=== PATIENT | male | born 1985 | race Caucasian/White ===

== ENCOUNTER 2018-09-20 08:03 | Inpatient (IN) | payer BC ==
[~2018-09-20] VITALS: Ht 180.3 cm; Wt 93.9 kg
[~2018-09-20 08:03] MED LIST: ACET-8386 PO
[2018-09-20 08:07] VITALS: BP 127/83
--- NOTE | 2018-09-20 08:11 | NUR ---
Patient ambulated to bed 9 at this time.
[2018-09-20] MEDS ORDERED: NACL 0.9% 1,000 ML IV SCH (08:12)
[2018-09-20] MEDS ORDERED: ONDANSETRON 4 MG/2 ML VIAL IVP ONE (08:15)
[2018-09-20] MEDS ORDERED: PANTOPRAZOLE 40 MG INJ VIAL IVP ONE (08:15)
--- NOTE | 2018-09-20 08:25 | NUR ---
BIB SELF WITH FAMILY C/O GENERALIZED ABD PAIN WITH BRIGHT RED BLOOD IN STOOL, NAUSEA, FATIGUE, AND BACK PAIN X 5 DAYS. LAST BM TODAY. PT A&OX4, BREATHING EVEN AND UNLABORED, NSR ON MONITOR. PAIN 8/10 AT THIS TIME.
[2018-09-20] MEDS ORDERED: METOCLOPRAMIDE 10 MG/2 ML INJ VIAL IVP ONE (08:45)
[2018-09-20] MEDS ORDERED: FAMOTIDINE 20 MG/2 ML VIAL IVP ONE (08:45)
[2018-09-20] MEDS: NACL 0.9% 1,000 ML IV ONE ×2 (08:50→09:53)
[2018-09-20 08:56] LABS: BASOPHILS % (AUTO) 0.6 % (0.0-2.0); EOSINOPHILS # (AUTO) 0.1 K/uL (0-0.4); EOSINOPHILS % (AUTO) 1.2 % (0.0-4.0); HEMATOCRIT 28.9 % (36-52); HEMOGLOBIN 9.9 g/dL (12.0-18.0); LYMPHOCYTES # (AUTO) 1.8 K/uL (2.0-11.5); LYMPHOCYTES % (AUTO) 22.4 % (20.5-51.1); MEAN CORPUSCULAR HEMOGLOBIN 29 pg (27-31); MEAN CORPUSCULAR HGB CONC 34 g/dL (33-37); MEAN CORPUSCULAR VOLUME 84.7 fL (80-94); MONOCYTES # (AUTO) 0.6 K/uL (0.8-1.0); MONOCYTES % (AUTO) 6.9 % (1.7-9.3); NEUTROPHILS # (AUTO) 5.5 K/uL (1.8-7.7); NEUTROPHILS % (AUTO) 68.9 % (42.2-75.2); PLATELET COUNT (AUTO) 185 K/uL (140-450); RED BLOOD CELL COUNT(AUTO) 3.42 MIL/uL (4.20-6.10)
--- NOTE | 2018-09-20 09:07 | NUR ---
PT TO CT WITH OCHOA GIL
[2018-09-20 09:18] LABS: APPEARANCE,URINE CLEAR (CLEAR); BILIRUBIN,URINE NEGATIVE (NEGATIVE); BLOOD, URINE NEGATIVE (NEGATIVE); COLOR,URINE YELLOW (YELLOW); LEUKOCYTE ESTERASE ,URINE NEGATIVE (NEGATIVE); NITRITE, URINE NEGATIVE (NEGATIVE); UGLUCOSE NEGATIVE (NEGATIVE)
[2018-09-20 09:18] LABS: ALBUMIN 3.4 g/dL (3.4-5.0); AMYLASE 48 U/L (25-115); ANION GAP 14.7 (8-16); ASPARTATE AMINOTRANSFERASE 29 U/L (15-37); CARBON DIOXIDE 24.4 mmol/L (21-32); CHLORIDE 105 mmol/L (98-107); CREATININE 0.7 mg/dL (0.7-1.3); GFR ARICAN-AMERICAN 167 mL/min (>90); GLUCOSE 149 mg/dL (74-106); LIPASE 103 U/L (73-393); POTASSIUM 4.1 mmol/L (3.5-5.1); SODIUM SERUM 140 mmol/L (136-145); TOTAL BILIRUBIN 0.9 mg/dL (0.0-1.0); UREA NITROGEN, BLOOD 20 mg/dL (7-18)
--- NOTE | 2018-09-20 09:18 | NUR ---
PT BACK FROM CT WITHOUT INCIDENT.
[2018-09-20 09:20] LABS: BARBITURATE, URINE NEG. ng/ml (NEG <=200); BENZODIAZEPINE, URINE NEG. ng/mL (NEG <=200); CANNABINOID, URINE NEG. ng/mL (NEG <=50); COCAINE, URINE NEG. ng/mL (NEG <=300); OPIATE, URINE NEG. ng/mL (NEG <=2000); PHENCYCLIDINE SCREEN,URINE NEG. ng/mL (NEG <=25)
[2018-09-20] MEDS ORDERED: CLON0.5T PO ×2 (09:20→10:45)
[2018-09-20] MEDS ORDERED: LOSA50TA66 PO ×2 (09:20→10:45)
[2018-09-20] MEDS ORDERED: ACETAMINOPHEN 325 MG TAB PO PRN (09:55)
[2018-09-20] MEDS ORDERED: ZOLPIDEM 5 MG TAB PO PRN (09:55)
[2018-09-20] MEDS ORDERED: HYDROcodone/APAP 5/325 MG 1 TAB TAB PO PRN (09:55)
[2018-09-20] MEDS ORDERED: LORazepam 2 MG/ML VIAL IM/IVP PRN (09:55)
[2018-09-20] MEDS ORDERED: MORPHINE SULFATE 2 MG/ML SYR IVP PRN (09:55)
[2018-09-20] MEDS ORDERED: DOCUSATE SODIUM 100 MG GELCAP PO PRN (09:55)
[2018-09-20] MEDS: NACL 0.9% 1,000 ML IV SCH (10:18)
--- NOTE | 2018-09-20 10:30 | NUR ---
RECEIVED BEDSIDE REPORT FROM ER NURSE. PATIENT IS AWAKE, ALERT AND ORIENTEDX4. NO SIGNS OF DISTRESS ON RA. SKIN IS INTACT. PATIENT AMBULATORY. CONTINENT. ABLE TO MAKE NEEDS KNOWN. BED IN LOW POSITION. CALL LIGHT WITHIN REACH. IV ON L AC 20G INFUSING NS AT 60. CLEAN, DRY AND INTACT. MRSA SWAB DONE. ADMISSION QUESTIONS ANSWERED. WILL CONTINUE TO MONITOR
--- NOTE | 2018-09-20 10:35 | NUR ---
Patient will be admitted to care of DR. HUANG. Admited to [facility]. Will go to room 111B. Belongings list completed. Report to JOEL PEÑA.
[2018-09-20] MEDS ORDERED: clonazePAM 0.5 MG TAB PO SCH (10:45)
[2018-09-20] MEDS ORDERED: ALBUTEROL SULFATE/IPRATROPIU 3 ML SOL IH PRN (10:50)
[2018-09-20 11:00] VITALS: BP 120/72
--- NOTE | 2018-09-20 11:08 | NUR ---
PATIENT IN NO DISTRESS. WILL CONTINUE TO MONITOR
--- NOTE | 2018-09-20 12:46 | NUR ---
PATIENT NEEDS TO HAVE A BM, GAVE HIM A HAT FOR A STOOL SAMPLE
[2018-09-20] MEDS ORDERED: MECLIZINE 25 MG TAB PO PRN (13:05)
[2018-09-20] MEDS ORDERED: clonazePAM 0.5 MG TAB PO PRN (13:15)
--- NOTE | 2018-09-20 13:51 | NUR ---
othro vitals is as follow b/p laying 120/65 hr 77 sitting b/p 127/65 hr 89 standing 117/74 hr 105
[2018-09-20 14:23] LABS: MAGNESIUM 1.6 mg/dL (1.8-2.4); PHOSPHORUS 2.3 mg/dL (2.5-4.9); THYROID STIMULATING HORMONE 1.69 uIU/mL (0.34-3.74)
--- NOTE | 2018-09-20 15:00 | NUR ---
PATIENT IN NO SIGNS OF DISTRESS, WILL CONTINUE TO MONITOR
[2018-09-20] MEDS ORDERED: MAG SULF 2000 MG/WATER PREMIX 50 ML IV SCH (15:30)
[2018-09-20 16:00] VITALS: BP 126/74
[2018-09-20] MEDS ORDERED: SENNA 8.6 MG TAB PO SCH (16:30)
[2018-09-20] MEDS ORDERED: LACTULOSE 20 GM/30 ML UDC PO SCH (16:30)
[2018-09-20] MEDS: SUPREP BOWEL PREP KIT 354 ML SOLN.RECON PO SCH (17:14)
--- NOTE | 2018-09-20 17:24 | NUR ---
ADMINISTERED [facility]. PATIENT TOLERATED WELL. NO SIGNS OF DISTRESS, EDUCATED ON SIDE EFFECTS. WILL CONTINUE TO MONITOR THE PATIENT
--- NOTE | 2018-09-20 19:05 | NUR ---
GAVE BEDSIDE REPORT TO SENIOR MANUFACTURING SUPERVISOR NURSE. PATIENT ENDORSED IN STABLE CONDITION.
--- NOTE | 2018-09-20 19:06 | NUR ---
RECEIVED BEDSIDE REPORT FROM MARIANA MALDONADO. PT IS AAO X4. ON ROOM AIR RESPIRATIONS ARE EQUAL AND UNLABORED. LUNG SOUNDS ARE CLEAR. PT IS AMBULATORY. PATIENT TO BE NPO AFTER MIDNIGHT FOR EGD/COLONOSCOPY TOMORROW MORNING PATIENT IS AWARE. CONSENT IS SIGN. IV ON LAC 20G INFUSING NS AT 60ML/H. PLAN OF CARE DISCUSSED WITH PT. CALL LIGHT WITHIN REACH. WILL CONTINUE TO MONITOR.
[2018-09-20] MEDS: ONDANSETRON 4 MG/2 ML VIAL IM/IVP PRN (19:28)
--- NOTE | 2018-09-20 19:28 | NUR ---
ZOFRAN ADMINISTERED FOR NAUSEA. PATIENT TOLERATED WELL. NO S/S OF DISTRESS. WILL CONTINUE TO MONITOR.
--- NOTE | 2018-09-20 22:00 | NUR ---
PATIENT IS RESTING IN BED. NO S/S OF DISTRESS. CALL LIGHT IS WITHIN REACH. WILL CONTINUE TO MONITOR.
[2018-09-21] VITALS (7 sets, daily range): BP systolic 98–144; BP diastolic 36–87
--- NOTE | 2018-09-21 00:03 | NUR ---
VITAL SIGNS ARE WITHIN NORMAL LIMITS. NO S/S OF DISTRESS. ALL NEEDS MET AT THIS TIME. WILL CONTINUE TO MONITOR.
[2018-09-21] MEDS: NACL 0.9% 1,000 ML IV SCH (02:11)
--- NOTE | 2018-09-21 02:20 | NUR ---
PATIENT IS SLEEPING COMFORTABLY IN BED. NO S/S OF DISTRESS. CALL LIGHT IS WITHIN REACH. WILL CONTINUE TO MONITOR.
--- NOTE | 2018-09-21 04:00 | NUR ---
PATIENT IS SLEEPING. CALL LIGHT IS WITHIN REACH.
[2018-09-21] MEDS: SUPREP BOWEL PREP KIT 354 ML SOLN.RECON PO SCH (05:18)
--- NOTE | 2018-09-21 05:18 | NUR ---
ADMINISTERED BOWEL PREP. PATIENT TOLERATED WELL. NO S/S OF DISTRESS. PER PATIENT BOWEL MOVEMENTS ARE STARTING TO CLEAR UP. ALL NEEDS MET AT THIS TIME. CALL LIGHT WITHIN REACH. WILL CONTINUE TO MONITOR.
[2018-09-21 07:00] LABS: BASOPHILS # (AUTO) 0.1 K/uL (0.00-0.22); BASOPHILS % (AUTO) 0.7 % (0.0-2.0); EOSINOPHILS # (AUTO) 0.1 K/uL (0-0.4); EOSINOPHILS % (AUTO) 1.5 % (0.0-4.0); HEMATOCRIT 22.8 % (36-52); LYMPHOCYTES # (AUTO) 2.5 K/uL (2.0-11.5); LYMPHOCYTES % (AUTO) 30.3 % (20.5-51.1); MEAN CORPUSCULAR HEMOGLOBIN 30 pg (27-31); MEAN CORPUSCULAR HGB CONC 35 g/dL (33-37); MEAN CORPUSCULAR VOLUME 84.9 fL (80-94); MONOCYTES # (AUTO) 0.6 K/uL (0.8-1.0); MONOCYTES % (AUTO) 7.1 % (1.7-9.3); NEUTROPHILS % (AUTO) 60.4 % (42.2-75.2); PLATELET COUNT (AUTO) 179 K/uL (140-450); RED BLOOD CELL COUNT(AUTO) 2.69 MIL/uL (4.20-6.10); RED CELL DISTRIBUTION WIDTH 13.7 % (11.6-13.7); WHITE BLOOD COUNT (AUTO) 8.3 K/uL (4.8-10.8)
[2018-09-21] MEDS ORDERED: SODIUM PHOS / POTASSIUM PHOS 1 PKT PDR PO SCH (07:00)
[2018-09-21 07:01] LABS: ANION GAP 13.1 (8-16); CARBON DIOXIDE 26.9 mmol/L (21-32); CREATININE 0.6 mg/dL (0.7-1.3)
[2018-09-21 07:09] LABS: CHOL/HDL RATIO 5.6 (1-4.5)
--- NOTE | 2018-09-21 07:15 | NUR ---
GAVE BEDSIDE REPORT TO DAY SHIFT RN. PT ENDORSED IN STABLE CONDITION.
--- NOTE | 2018-09-21 07:16 | NUR ---
RECEIVED BEDSIDE REPORT FROM CROP FARMERS NURSE. PATIENT IS AWAKE, ALERT AND ORIENTEDX4. NO SIGNS OF DISTRESS ON RA. SKIN IS INTACT. AMBULATORY. CONTINENT. IV ON L AC 20G INFUSING NS AT 60. CLEAN, DRY AND INTACT, ABLE TO MAKE NEEDS KNOWN. WILL CONTINUE TO MONITOR THE PATIENT. BED IN LOW POSITION
[2018-09-21 08:38] LABS: MAGNESIUM 1.9 mg/dL (1.8-2.4); PHOSPHORUS 2.9 mg/dL (2.5-4.9)
[2018-09-21] MEDS: LOSARTAN 50 MG TAB PO SCH (09:00)
[2018-09-21] MEDS: PANTOPRAZOLE 40 MG INJ VIAL IVP SCH (09:05)
--- NOTE | 2018-09-21 09:14 | NUR ---
ADMINISTERED DI MED. HELD LOSARTAN, PATIENT IS NPO AND B/P IS 111/59. EDUCATED ON SIDE EFFECTS. PATIENT VERBALIZED UNDERSTANDING. FAMILY AT BEDSIDE. WILL CONTINUE TO MONITOR THE PATIENT.
--- NOTE | 2018-09-21 09:51 | NUR ---
PATIENT HAS BEEN SCREENED AND CATEGORIZED MODERATE NUTRITION RISK. PATIENT WILL BE SEEN WITHIN 3-5 DAYS OF ADMISSION. 09/20/18[address]IB[address]
--- NOTE | 2018-09-21 10:00 | NUR ---
PATIENT PICKED UP BY OR STAFF. PATIENT LEFT IN STABLE CONDITION
[2018-09-21] MEDS ORDERED: fentaNYL 0.05 MG/ML VIAL ONE (10:04)
[2018-09-21] MEDS: MIDAZOLAM 2 MG/2 ML VIAL ONE ×2 (10:04→10:41)
[2018-09-21] MEDS ORDERED: diphenhydrAMINE 50 MG/ML VIAL ONE (10:05)
[2018-09-21] MEDS: diphenhydrAMINE 50 MG/ML VIAL IVP SCH ×2 (11:20→13:30)
--- NOTE | 2018-09-21 11:40 | NUR ---
NM CALLED AND SAID THE LATEST THEY CAN COME IS AROUND 1600. BUT SHE WILL CALL HER BOSS TO SEE IF ANYONE ELSE IS ABLE TO COME EARLIER
--- NOTE | 2018-09-21 12:05 | NUR ---
PATIENT BACK FROM OR IN STABLE CONDITION. VITALS WILL BE POSTED IN THE CHART
[2018-09-21] MEDS ORDERED: MIDAZOLAM 2 MG/2 ML VIAL IVP ONE (13:20)
[2018-09-21] MEDS ORDERED: fentaNYL 0.05 MG/ML VIAL IVP ONE (13:20)
--- NOTE | 2018-09-21 14:05 | NUR ---
NEW ORDER TO TRANSFER TO HIGHER LEVEL OF CARE, CALLED [facility] [phone] BUT WAS ADVISE TO CALL [phone], CALLED THE NUMBER AND SPOKE WITH MENG AND I WAS TOLD TO CALL [phone]. CALLED AND SPOKE WITH DIRK, AND SHE SAID THAT I NEED TO CALL THE [phone].
--- NOTE | 2018-09-21 14:30 | NUR ---
PATIENT IS SLEEPING. NO SIGNS OF DISTRESS. WILL CONTINUE TO MONITOR THE PATIENT.
--- NOTE | 2018-09-21 15:05 | NUR ---
CALLED [facility] AGAIN [phone] SPOKE WITH SUSAN TO GET AUTHORIZATION FOR TRANSFER.
--- NOTE | 2018-09-21 15:21 | NUR ---
FAXED ALL CLINICALS TO [facility] [phone], [phone], [facility] [phone]
--- NOTE | 2018-09-21 15:38 | NUR ---
AWAITING FOR [facility] AUTHORIZATION.
--- NOTE | 2018-09-21 15:44 | NUR ---
CALLED [facility] SPOKE TO TIM BARMAID [phone] TO TRANSFER THIS PATIENT, PER TIM, BED MIGHT BE AVAILABLE AFTER 7PM. SHE WILL CALL THE FLOOR LATER.
--- NOTE | 2018-09-21 15:46 | NUR ---
CALLED [facility] SPOKE TO LU JEROMESANITATION LABORER [phone] AND SHE SAID NO BED AVAILABLE AT THIS TIME. CALLED [facility] [place] [phone] AND STILL LOOKING FOR BED. COACH DRIVER NURSE ZACH IN THE FLOOR NOTIFIED.
--- NOTE | 2018-09-21 16:03 | NUR ---
PAUL FROM [facility] CALLED AND VERIFIED SOME CLINICALS, SHE SAID SHE WILL CALL BACK FOR ROOM. GAVE HER THE TELE FLOOR NUMBER TO CALL LATER.
--- NOTE | 2018-09-21 16:23 | NUR ---
CALLED [facility] AGAIN [phone] TO FOLLOW -UP AUTHORIZATION AND SPOKE TO PABLITO, EMPHASIZED TO PABLITO THE URGENCY TO TRANSFER THIS PATIENT TO HIGHER LEVEL OF CARE, AND HE SAID THAT HE NEEDS TAX ID OF THE HOSPITALS AND ALSO THE INFO OF ACCEPTING MD AND TAX ID . TOLD PABLITO THAT WHEN I SPOKE TO ELLIE EARLIER SHE DIDNT ASK ME ALL THIS INFO.
--- NOTE | 2018-09-21 16:28 | NUR ---
STILL WAITING FOR BED FROM [facility], CALLED [facility] TRANSPORTATION TECHNICIAN NURSE ZACH AND UPDATED HER OF THE PATIENT STATUS.
[2018-09-21] MEDS ORDERED: NACL 0.9% 1,000 ML IV ONE (16:40)
[2018-09-21] MEDS: DEXT 5% / NACL 0.45% 1,000 ML IV SCH (16:50)
--- NOTE | 2018-09-21 17:00 | NUR ---
B/P 98/54 PATIENT DIAPHORETIC, O2SAT DROPPED TO 89, PATIENT ON 2L NC AND O2SAT NOW AT 97%. TOLD DR HAZEL, PATIENT NOW ON TELE. STARTED NS BOLUS ON PATIENT.
[2018-09-21 17:14] LABS: BASOPHILS % (AUTO) 0.4 % (0.0-2.0); EOSINOPHILS # (AUTO) 0.1 K/uL (0-0.4); EOSINOPHILS % (AUTO) 0.6 % (0.0-4.0); LYMPHOCYTES # (AUTO) 3.2 K/uL (2.0-11.5); LYMPHOCYTES % (AUTO) 26.8 % (20.5-51.1); MEAN CORPUSCULAR HEMOGLOBIN 29 pg (27-31); MEAN CORPUSCULAR HGB CONC 34 g/dL (33-37); MONOCYTES # (AUTO) 0.9 K/uL (0.8-1.0); MONOCYTES % (AUTO) 7.1 % (1.7-9.3); NEUTROPHILS # (AUTO) 7.9 K/uL (1.8-7.7); NEUTROPHILS % (AUTO) 65.1 % (42.2-75.2); PLATELET COUNT (AUTO) 182 K/uL (140-450); RED BLOOD CELL COUNT(AUTO) 2.25 MIL/uL (4.20-6.10); RED CELL DISTRIBUTION WIDTH 13.8 % (11.6-13.7); WHITE BLOOD COUNT (AUTO) 12.1 K/uL (4.8-10.8)
--- NOTE | 2018-09-21 17:19 | NUR ---
GAVE BEDSIDE REPORT TO RNSHARRI
--- NOTE | 2018-09-21 17:20 | NUR ---
RECEIVED REPORT FROM MARIANA MALDONADO. PT RECEIVING 1L BOLUS NOW. VSS. SLIGHTLY DIAPHORETIC. DR. HAZEL IS AWARE. PENDING STAT CBC. ALL SAFETY PRECAUTIONS IN PLACE, WILL CONTINUE TO MONITOR.
[2018-09-21 17:21] LABS: HEMATOCRIT 19.2 % (36-52); HEMOGLOBIN 6.4 g/dL (12.0-18.0)
--- NOTE | 2018-09-21 17:45 | NUR ---
OBTAINED CONSENT FOR BLOOD TRANSFUSION WITH DR. HAZEL AT BEDSIDE EXPLAINING TO PATIENT VIA DISPLAY DECORATOR #[id number].
--- NOTE | 2018-09-21 17:57 | NUR ---
PER LAB, IT WILL TAKE UP TO 2 HOURS FOR CROSSMATCH. NOTIFIED DR. HAZEL. JEREMY TO WAIT.
--- NOTE | 2018-09-21 18:40 | NUR ---
RECEIVED PT. FROM TELE IN BED . ADM. TO ICU BED3. PT. IS AWAKE AND ALERT WELL ORIENTED. SKIN WARM DRY TO TOUCH.COLOR PALE. ANE INTACT.IV FLUID ON LT ARM INFUSING NS AT 60 ML/HR.PT ABLE TO WALK FROM BED TO BED.THERE IS NO BLEEDING FROM RECTUM NOTE AT THE TIME.NO NAUSEA OR VOMITING AT THE TIME.PT SISTER AT BED SIDE.
--- NOTE | 2018-09-21 18:42 | NUR ---
ENDORSED POC TO JOEL SHEETS
--- NOTE | 2018-09-21 19:14 | NUR ---
[facility] CALLED TO OBTAIN PT. CONDITION.REPORT WAS GIVEN TO
--- NOTE | 2018-09-21 19:40 | NUR ---
CALLED LAB TO FOLLOW-UP REGARDING THE BLOOD ORDERED FOR PT. SPOKE WITH BALDO, ACCORDING TO HER IT IS NOT READY YET. WILL FOLLOW-UP.
[2018-09-21] MEDS: OCTREOTIDE ACETATE 1.25 MG in NACL 0.9% 250 ML IV SCH (19:45)
--- NOTE | 2018-09-21 19:45 | NUR ---
RECEIVED BEDSIDE REPORT FROM MORNING SHIFT RNKORTNEY. PT IS AWAKE, AAOX4, CAMBODIAN SPEAKING, ABLE TO MAKE NEEDS KNOWN. ON ROOM AIR, SR ON PELT GRADER. BP 134/71, RR=13, SATING 99%, HR 74. ABDOMEN IS LARGE/ROUND, NPO EXCEPT MEDS. CONTINENT, COMMODE AND URINAL AT BEDSIDE. HOB ELEVATED ABOVE 30 DEG, SISTER AT BEDSIDE TO SEE PATIENT. PT HAS LEFT AC 20 GAUGE AND RIGHT FA 20 GAUGE PIV INFUSING NS AT 60CC/HR. STANDARD PRECAUTIONS, FULL CODE, NKA. EDUCATED PATIENT AND FAMILY ON USE OF LEGAL ANALYST PHONE IF NEEDED, PT VERBALIZED UNDERSTANDING.
--- NOTE | 2018-09-21 20:05 | NUR ---
RECEIVED A CALL FROM [facility] AND SPOKE WITH TIM. ACCORDING TO HER, THEY CANNOT ACCEPT THE PT AT THIS TIME.
--- NOTE | 2018-09-21 20:45 | NUR ---
CALLED LEXY IN LAB, FOLLOWED UP ON PATIENT 2 UNIT PRBC, INFORMED CROSSMATCH WAS COMPLETED WILL CALL BACK WHEN READY FOR PICKUP.
--- NOTE | 2018-09-21 21:15 | NUR ---
RECEIVED CALL BACK FROM JUVENAL IN LAB, STATED BLOOD IS READY FOR PICKUP/TRANSFUSION
--- NOTE | 2018-09-21 22:11 | NUR ---
BLOOD TRANSFUSION STARTED, PT RATED PAIN AT 7/10 BUT REFUSED MORPHINE STATED THAT HE IS AFRAID TO TAKE IT AND PREFERRED TO TAKE TYLENOL. TYLENOL GIVEN PER PATIENT REQUEST. PT IS IN BED, CALM/COOPEARTIVE AT THIS TIME. Addendum: 09/22/18 at 0739 by Bonny Rehman RN MORPHINE WAS WASTED, PT REFUSED MED AT BEDSIDE.
--- NOTE | 2018-09-21 22:57 | NUR ---
CALLED [facility] TO FOLLOW-UP REGARDING PT TRANSFER. SPOKE WITH DELMY, UPDATED HER REGARDING THE PT'S CONDITION. SHE WANTED THE ENDOSCOPY/COLONOSCOPY RESULT TO BE FAXED AT . ACCORDING TO DELMY, ICU IS CURRENTLY FULL. THERE IS NO ACCEPTING PHYSICIAN YET. THERE NEEDS TO BE A COMMUNICATION BETWEEN [facility] ATTENDING AND [facility] ATTENDING. PER DELMY, THEY WILL CONTACT DR. HUANG IN THE MORNING.
--- NOTE | 2018-09-21 23:20 | NUR ---
FAXED THE PAPERS TO [facility] C/O DELMY. WILL FOLLOW-UP IN THE AM.
[2018-09-22] VITALS: BP 126/66
--- NOTE | 2018-09-22 00:10 | NUR ---
RECEIVED A CALL FROM LAB, SPOKE WITH CHARISSE. INFORMED HER THAT PER RESIDENT DOCTOR, CBC IS TO BE DONE POST BLOOD TRANSFUSION. PT STILL CURRENTLY RECEIVING BLOOD. WILL INFORM LAB WHEN PT IS DONE WITH BLOOD TRANSFUSION.
--- NOTE | 2018-09-22 00:18 | NUR ---
CALLED [facility] TO FOLLOW-UP REGARDING POSSIBLE TRANSFER OF PT. SPOKE WITH ONOFRE, ACCORDING TO HIM THERE IS NO ICU BED AVAILABLE AT THIS TIME.
--- NOTE | 2018-09-22 00:55 | NUR ---
CALLED [facility] , SPOKE WITH JOEL PINO TO ARRANGE TRANSFER FOR PT. WAS INSTRUCTED TO FAX CLINICALS FOR PT ON FAX# . CONTACT NUMBER FOR ALVAREZ .
--- NOTE | 2018-09-22 01:03 | NUR ---
CALLED DR. RIVAS TO INFORM HIM REGARDING THE CURRENT STATUS OF TRANSFER FOR PT.
--- NOTE | 2018-09-22 02:15 | NUR ---
PT IN BE SLEEPING STARTED SECOND PACK UNIT OF PRBC. PT TOLERATED WELL, DENIES PAIN/NAUSEA, CALM/COOPERATIVE. WILL CONTINUE TO MONITOR
[2018-09-22] MEDS: DEXT 5% / NACL 0.45% 1,000 ML IV SCH ×3 (02:35→15:07)
--- NOTE | 2018-09-22 03:04 | NUR ---
TRANSFUSION OF SECOND PRBC COMPLETED AT THIS TIME. PT VSS, FLACC 0, DENIES PAIN/NAUSEA AT THIS TIME. PT ABLE TO REPOSITION HIMSELF IN BED.
--- NOTE | 2018-09-22 04:01 | NUR ---
OLREN, FROM [facility] RETURNED CALL, STATED THAT THERE IS A HOLD ON ACCEPTING THE PATIENT UNTIL THEY CAN VERIFY PT INSURANCE (BCBS) IN THE MORNING. WILL CALL BACK IN THE MORNING WITH UPDATE.
--- NOTE | 2018-09-22 04:53 | NUR ---
TIFFANY FROM LAB AT BEDSIDE TO COLLECT SAMPLE.
[2018-09-22 06:55] LABS: BASOPHILS % (AUTO) 0.3 % (0.0-2.0); EOSINOPHILS # (AUTO) 0.1 K/uL (0-0.4); EOSINOPHILS % (AUTO) 1.2 % (0.0-4.0); HEMATOCRIT 23.1 % (36-52); LYMPHOCYTES # (AUTO) 2.5 K/uL (2.0-11.5); LYMPHOCYTES % (AUTO) 23.3 % (20.5-51.1); MEAN CORPUSCULAR HEMOGLOBIN 30 pg (27-31); MEAN CORPUSCULAR HGB CONC 35 g/dL (33-37); MEAN CORPUSCULAR VOLUME 86.5 fL (80-94); MONOCYTES # (AUTO) 0.9 K/uL (0.8-1.0); MONOCYTES % (AUTO) 8.1 % (1.7-9.3); NEUTROPHILS # (AUTO) 7.3 K/uL (1.8-7.7); NEUTROPHILS % (AUTO) 67.1 % (42.2-75.2); PLATELET COUNT (AUTO) 147 K/uL (140-450); RED BLOOD CELL COUNT(AUTO) 2.68 MIL/uL (4.20-6.10); RED CELL DISTRIBUTION WIDTH 13.9 % (11.6-13.7); WHITE BLOOD COUNT (AUTO) 10.9 K/uL (4.8-10.8)
[2018-09-22 06:57] LABS: CREATININE 0.7 mg/dL (0.7-1.3)
[2018-09-22 07:00] LABS: MAGNESIUM 1.8 mg/dL (1.8-2.4); PHOSPHORUS 3.1 mg/dL (2.5-4.9)
--- NOTE | 2018-09-22 07:00 | NUR ---
RECEIVED A CALL FROM DR. CEJA, UPDATED HIM REGARDING PT'S CONDITION. PER DR. CEJA CHANGE PT'S DIET TO CLEAR LIQUID DIET.
[2018-09-22 08:00] VITALS: BP 115/64
--- NOTE | 2018-09-22 08:00 | NUR ---
PT'S RIGHT FA IV UNABLE TO GET BLOOD RETURN, UNABLE TO FLUSH. REMOVED IV FROM RIGHT FOREARM.
--- NOTE | 2018-09-22 08:30 | NUR ---
PT'S C/O LEFT AC HURTS WHEN FLUSH NS. TRIED AND USE VEIN FINDER TO INSERT IV. HARD TO SEE VEIN. CHARGE NURSE ALSO CHECKED PT'S VEIN. PT STATED IT WAS HARD TO FIND HIS VEIN YESTERDAY. THEY POKED HIM SO MANY TIMES. NOTIFIED RESIDENT DR. Nava.
[2018-09-22] MEDS: LOSARTAN 50 MG TAB PO SCH (09:00)
[2018-09-22] MEDS: PANTOPRAZOLE 40 MG INJ VIAL IVP SCH ×2 (09:00→09:17)
--- NOTE | 2018-09-22 09:00 | NUR ---
notified dr. oconnell for 0900 due medication Losartan and bp, per dr. oconnell. hold Losartan.
[2018-09-22 10:12] LABS: FOLIC ACID 12.2 ng/mL (>3.0)
--- NOTE | 2018-09-22 10:35 | NUR ---
PICC LINE PRESENT TO BEDSIDE. TIME OUT FORM DONE.
--- NOTE | 2018-09-22 11:00 | NUR ---
PICC LINE INSERTION DONE. PT TOLERATED WELL. X-RAY TECH AT BEDSIDE.
[2018-09-22 12:00] VITALS: BP 118/75
[2018-09-22 12:49] LABS: BASOPHILS % (AUTO) 0.3 % (0.0-2.0); EOSINOPHILS # (AUTO) 0.1 K/uL (0-0.4); EOSINOPHILS % (AUTO) 0.8 % (0.0-4.0); HEMATOCRIT 21.9 % (36-52); HEMOGLOBIN 7.5 g/dL (12.0-18.0); LYMPHOCYTES % (AUTO) 22.3 % (20.5-51.1); MEAN CORPUSCULAR HEMOGLOBIN 30 pg (27-31); MEAN CORPUSCULAR HGB CONC 34 g/dL (33-37); MEAN CORPUSCULAR VOLUME 86.6 fL (80-94); MONOCYTES # (AUTO) 0.6 K/uL (0.8-1.0); MONOCYTES % (AUTO) 6.9 % (1.7-9.3); NEUTROPHILS # (AUTO) 6.1 K/uL (1.8-7.7); NEUTROPHILS % (AUTO) 69.7 % (42.2-75.2); PLATELET COUNT (AUTO) 152 K/uL (140-450); RED BLOOD CELL COUNT(AUTO) 2.53 MIL/uL (4.20-6.10); RED CELL DISTRIBUTION WIDTH 13.9 % (11.6-13.7); WHITE BLOOD COUNT (AUTO) 8.8 K/uL (4.8-10.8)
--- NOTE | 2018-09-22 13:46 | NUR ---
ASSISTED PT TO USE BEDSIDE COMMODE. PT HAD BM WITH DARK BLOOD , NOTIFIED DR. BALDWIN , NO NEW ORDER. WILL CONTINUE TO MONITOR PT.
[2018-09-22 14:40] VITALS: BP 113/63
--- NOTE | 2018-09-22 14:50 | NUR ---
transferred pt to tele 111A, report given. pt vital stable, pt's with pt. pt walked from hallway to his room.
--- NOTE | 2018-09-22 14:51 | NUR ---
Received report from VACUUM TRUCK DRIVER. Patient ambulated from chair to bed with steady gait, at bedside. Vitals are stable, patient speaking clearly with no signs of distress on RA. Oriented patient to room and unit, provided call light and updated patient on plan of care. Patient verbalized understanding. Safety precautions in place. Will continue to monitor.
--- NOTE | 2018-09-22 15:07 | NUR ---
[facility] PT WAS ACCEPTED AT [facility] BUT NO BED AVAILABLE AT THIS TIME.
--- NOTE | 2018-09-22 16:00 | NUR ---
PATIENT OFF UNIT, TRANSPORTED VIA WHEELCHAIR TO NUCLEAR MEDICINE FOR IMAGING. PATIENT VITALS ARE STABLE BP 126/68, HR 74. CLAMPED PICC LINE LUMENS, DISCONNECTED IV FLUID AND SANDOSTATIN, CLEANED AND CAPPED PICC LUMENS. PATIENT AMBULATED TO WHEELCHAIR WITH STEADY GAIT.
[2018-09-22] MEDS ORDERED: ONDA2SOL45 IM/IVP (17:06)
[2018-09-22] MEDS ORDERED: ZOLP5TAB1 PO (17:06)
[2018-09-22] MEDS ORDERED: ACET-1182 PO (17:06)
[2018-09-22] MEDS ORDERED: ACET-9525 PO (17:06)
[2018-09-22] MEDS ORDERED: CLON0.5T11 PO (17:06)
[2018-09-22] MEDS ORDERED: LOSA50TA1 PO (17:06)
[2018-09-22] MEDS ORDERED: DOCU-299 PO (17:06)
[2018-09-22] MEDS ORDERED: MECL-272 PO (17:06)
[2018-09-22] MEDS ORDERED: ALBU3SOL83 IH (17:06)
[2018-09-22] MEDS ORDERED: MORP2SOL18 IVP (17:06)
[2018-09-22] MEDS ORDERED: PANT40PD7 IVP (17:06)
[2018-09-22] MEDS ORDERED: LOSA50TA66 PO (17:11)
--- NOTE | 2018-09-22 18:50 | NUR ---
PATIENT RETURNED TO UNIT. VITALS STABLE. AT BEDSIDE. REATTACHED FLUIDS AND SANDOSTATIN TO PICC LINE LUMENS.
--- NOTE | 2018-09-22 19:15 | NUR ---
GAVE REPORT TO WEB DEVELOPMENT INTERN RNSKYELR. PATIENT IN STABLE CONDITION.
--- NOTE | 2018-09-22 19:16 | NUR ---
RECEIVED PT IN STABLE CONDITION FROM NV NURSE. AWAKE,ALERT AND ORIENTED X4. ON TELE MONITOR. WITH NO C/O ANY DISCOMFORT NOR PAIN NOTED. FAMILY MEMBER AT BEDSIDE. HAS IVF INFUSING WELL ON THE RT UPPER ARM PICC LINE, DOUBLE LUMEN. CLEAR AND PATENT. PLAN OF CARE DISCUSSED AND VERBALIZED UNDERSTANDING. BED ON LOW POSITION, CALL LIGHT PLACED WITHIN EASY REACH. WILL CONTINUE TO MONITOR.
[2018-09-22 19:50] VITALS: BP 128/75
[2018-09-22 19:56] LABS: BASOPHILS % (AUTO) 0.4 % (0.0-2.0); EOSINOPHILS # (AUTO) 0.1 K/uL (0-0.4); LYMPHOCYTES # (AUTO) 2.1 K/uL (2.0-11.5); LYMPHOCYTES % (AUTO) 25.2 % (20.5-51.1); MEAN CORPUSCULAR HEMOGLOBIN 30 pg (27-31); MEAN CORPUSCULAR HGB CONC 35 g/dL (33-37); MEAN CORPUSCULAR VOLUME 86.7 fL (80-94); MONOCYTES # (AUTO) 0.6 K/uL (0.8-1.0); MONOCYTES % (AUTO) 6.9 % (1.7-9.3); NEUTROPHILS # (AUTO) 5.6 K/uL (1.8-7.7); NEUTROPHILS % (AUTO) 66.5 % (42.2-75.2); PLATELET COUNT (AUTO) 159 K/uL (140-450); RED BLOOD CELL COUNT(AUTO) 2.27 MIL/uL (4.20-6.10); RED CELL DISTRIBUTION WIDTH 14.1 % (11.6-13.7); WHITE BLOOD COUNT (AUTO) 8.4 K/uL (4.8-10.8)
[2018-09-22 20:05] LABS: HEMATOCRIT 19.7 % (36-52); HEMOGLOBIN 6.8 g/dL (12.0-18.0)
--- NOTE | 2018-09-22 20:14 | NUR ---
LAB CALLED @2005 FOR CRITICAL HGB AND HCT 6.[address] PIERRE ,RESIDENT LOOM OPERATOR APPRENTICE MADE AWARE. HE SAID WILL ORDER MORE PRBC.
[2018-09-22] MEDS: OCTREOTIDE ACETATE 1.25 MG in NACL 0.9% 250 ML IV SCH (20:23)
--- NOTE | 2018-09-22 20:39 | NUR ---
BA ,FROM [facility] CALLED AND SHE SAID SHE ONLY HAVE ICU BED AT THIS TIME. WILL CALL BACK IF THERE IS A TELEMETRY BED AVAILABLE. ALSO ASKED CONTACT . DR. EDUARDO RESIDENT ON DUTY MADE AWARE .
--- NOTE | 2018-09-22 21:25 | NUR ---
BLOOD DRAWN FROM THE PICC LINE FOR SEND OUT LAB WORKS . WILL FOLLOW UP RESULTS.
[2018-09-22] MEDS ORDERED: CHLORHEXADINE GLUC 2% CLOTH TP SCH (21:45)
--- NOTE | 2018-09-22 22:25 | NUR ---
1ST UNIT PRBC STARTED AFTER VERIFIED WITH ANOTHER RN MANUEL AND WITH PT. VITAL SIGNS TAKEN PRIOR TO STARTING THE BLOOD. PT MADE AWARE ABOUT POSSIBLE REACTION TO BLOOD TRANSFUSION. VERBALIZED UNDERSTANDING.
[2018-09-22 23:25] VITALS: BP 118/56
--- NOTE | 2018-09-22 23:33 | NUR ---
LOREN FROM [facility] CALLED AND SAID THAT PT ALREADY HAS A TELEMETRY BED ROOM 656 B WITH CALL # . BUT SHE SAID PT CAN'T BE ACCEPTED NOT UNTIL TOMORROW AM @ 0700 -0800 AM THE ACCEPTING MD WILL BE DR. GAMEZ. JOEL LIANGBOWL TURNER MADE AWARE.
--- NOTE | 2018-09-23 00:22 | NUR ---
CALLED [facility] AND ABLE TO TALKED TO KIKE. GAVE INFORMATION ABOUT PT GOING TO BE TRANSFERRED TO [facility] ROOM 651P. WITH ACCEPTING MD, DR. GAMEZ . INSURANCE INFORMATION OF PT PROVIDED . WILL HEAD ATHLETIC TRAINER/STRENGTH COACH PT BY 0700 THIS AM.
--- NOTE | 2018-09-23 00:32 | NUR ---
DR. EDUARDO MADE AWARE ALSO OF THE AVAILABLE BED FOR PT IN [facility] AND SCHEDULED TO BE COMPLIANCE REVIEW OFFICER BY [facility] @ 0700 AND 0800 AM THIS AM. JOEL FUENTES BED WORKER ALSO MADE AWARE.
--- NOTE | 2018-09-23 01:35 | NUR ---
IST UNIT PRBC TRANSFUSION COMPLETED @0120 . WITH NO REACTION NOTED. VITAL SIGNS STABLE.
[2018-09-23 01:44] LABS: EOSINOPHILS # (AUTO) 0.1 K/uL (0-0.4); LYMPHOCYTES # (AUTO) 2.8 K/uL (2.0-11.5); WHITE BLOOD COUNT (AUTO) 8.7 K/uL (4.8-10.8)
[2018-09-23 01:57] LABS: BASOPHILS % (AUTO) 0.5 % (0.0-2.0); EOSINOPHILS % (AUTO) 1.2 % (0.0-4.0); HEMATOCRIT 21.8 % (36-52); LYMPHOCYTES % (AUTO) 32.1 % (20.5-51.1); MEAN CORPUSCULAR HEMOGLOBIN 30 pg (27-31); MEAN CORPUSCULAR HGB CONC 34 g/dL (33-37); MEAN CORPUSCULAR VOLUME 87.3 fL (80-94); MONOCYTES # (AUTO) 0.6 K/uL (0.8-1.0); MONOCYTES % (AUTO) 7.5 % (1.7-9.3); NEUTROPHILS # (AUTO) 5.1 K/uL (1.8-7.7); NEUTROPHILS % (AUTO) 58.7 % (42.2-75.2); PLATELET COUNT (AUTO) 152 K/uL (140-450); RED CELL DISTRIBUTION WIDTH 14.3 % (11.6-13.7)
[2018-09-23 02:01] LABS: HEMOGLOBIN 7.5 g/dL (12.0-18.0)
--- NOTE | 2018-09-23 02:12 | NUR ---
2ND UNIT PRBC STARTED AFTER BEEN VERIFIED WITH AZULDIABETES EDUCATOR NURSE AND PT. VITAL SIGNS TAKEN PRIOR TO STARTING THE BLOOD. WILL CONTINUE TO MONITOR.
[2018-09-23 02:22] VITALS: BP 114/58
[2018-09-23 03:42] VITALS: BP 102/48
--- NOTE | 2018-09-23 05:20 | NUR ---
2ND UNIT PRBC TRANSFUSION ENDED. VITAL SIGNS HAS BEEN STABLE . NO REACTION NOTED.
--- NOTE | 2018-09-23 05:38 | NUR ---
PT TO BE TRANSFER /DISCHARGE THIS AM. REPORT GIVEN TO JOEL HURTADO FROM [facility].
[2018-09-23 06:48] LABS: ANION GAP 11.8 (8-16); CREATININE 0.6 mg/dL (0.7-1.3); POTASSIUM 3.8 mmol/L (3.5-5.1)
[2018-09-23] MEDS: ONDANSETRON 4 MG/2 ML VIAL IM/IVP PRN (06:55)
--- NOTE | 2018-09-23 07:12 | NUR ---
PATIENT [facility]GR BY [facility] FOR TRANSFER /DISCHARGE TO [facility] BY JEFFERY IN STABLE CONDITION. TELEMETRY BOX TAKEN AND ALL PERSONAL BELONGINGS WITH PT. ID BAND REMOVED. TRANSFERRED WITH PICC LINE RT UPPER ARM. CLEAR AND PATENT. FAMILY WITH PT UPON DISCHARGE.
[2018-09-23 07:22] LABS: BASOPHILS % (AUTO) 0.3 % (0.0-2.0); EOSINOPHILS # (AUTO) 0.1 K/uL (0-0.4); EOSINOPHILS % (AUTO) 1.4 % (0.0-4.0); HEMATOCRIT 24.5 % (36-52); HEMOGLOBIN 8.6 g/dL (12.0-18.0); LYMPHOCYTES # (AUTO) 2.1 K/uL (2.0-11.5); MEAN CORPUSCULAR HEMOGLOBIN 31 pg (27-31); MEAN CORPUSCULAR HGB CONC 35 g/dL (33-37); MEAN CORPUSCULAR VOLUME 87.1 fL (80-94); MONOCYTES # (AUTO) 0.7 K/uL (0.8-1.0); MONOCYTES % (AUTO) 9.1 % (1.7-9.3); NEUTROPHILS # (AUTO) 5.2 K/uL (1.8-7.7); NEUTROPHILS % (AUTO) 63.2 % (42.2-75.2); PLATELET COUNT (AUTO) 151 K/uL (140-450); RED BLOOD CELL COUNT(AUTO) 2.81 MIL/uL (4.20-6.10); RED CELL DISTRIBUTION WIDTH 14.1 % (11.6-13.7); WHITE BLOOD COUNT (AUTO) 8.2 K/uL (4.8-10.8)
== END 2018-09-23 07:12 | disposition short-term general hospital (02) | DRG 379 ==
LOC: MED 08:03 → MTU 09:52 → MIC 09-21 18:25 → MTU 09-22 14:35
PROVIDERS: ADMIT General Practice; ATTEND General Practice
PROC: 30233N1 Transfusion of Nonautologous Red Blood Cells into Peripheral Vein, Percutaneous Approach (ICD-10-PCS; principal; 2018-09-21 10:00)
PROC: 0DB68ZX Excision of Stomach, Via Natural or Artificial Opening Endoscopic, Diagnostic (ICD-10-PCS; 2018-09-21 10:00)
PROC: 0DJD8ZZ Inspection of Lower Intestinal Tract, Via Natural or Artificial Opening Endoscopic (ICD-10-PCS; 2018-09-21 10:00)
PROC: 02HV33Z Insertion of Infusion Device into Superior Vena Cava, Percutaneous Approach (ICD-10-PCS; 2018-09-22)
PROC: B548ZZA Ultrasonography of Superior Vena Cava, Guidance (ICD-10-PCS; 2018-09-22)
DX: K92.1 Melena (principal); D64.9 Anemia, unspecified; E66.3 Overweight; E83.42 Hypomagnesemia; E83.39 Other disorders of phosphorus metabolism; K57.90 Diverticulosis of intestine, part unspecified, without perforation or abscess without bleeding; F41.9 Anxiety disorder, unspecified; E78.00 Pure hypercholesterolemia, unspecified; K59.00 Constipation, unspecified; E78.1 Pure hyperglyceridemia; K44.9 Diaphragmatic hernia without obstruction or gangrene; Z68.29 Body mass index [BMI] 29.0-29.9, adult; Z90.49 Acquired absence of other specified parts of digestive tract
CPT/HCPCS: 36415; 71045; 74018; 76881; 78278; 80048; 80053; 80305; 81003; 82150; 82272; 82607; 82728; 82746; 83036; 83540; 83690; 83735; 84100; 84443; 84484; 85025; 85045; 85610; 86677; 86886; 86900; 86901; 86920; 87045; 87081; 93005; 96361; 96374; 96375; 99285; A9512; A9560; C1751; C9113; G0482; J1200; J2250; J2270; J2354; J2405; J2765; J3010; J3475; J3490; J7030; P9016; Q0092